=== PATIENT | male | born 1980 | race Caucasian/White ===

== ENCOUNTER 2018-09-27 00:08 | Emergency (ER) | payer MEDICARE ==
[~2018-09-27] VITALS: Ht 188 cm; Wt 82.0 kg
[2018-09-27 09:31] LABS: BASOPHILS % 0.4 % (0.0-2.0); HEMATOCRIT. 41.1 % (42.0-52.0); HEMOGLOBIN. 13.7 g/dL (14.0-18.0); LYMPHOCYTES % 20.8 % (20.0-50.0); MEAN CORPUSCULAR HEMOGLOBIN 30.7 pg (28.0-32.0); MEAN CORPUSCULAR VOLUME 92.2 fL (80.0-94.0); MEAN PLATELET VOLUME 8.3 fl (7.4-10.4); MONOCYTES % 11.7 % (2.0-8.0); NEUTROPHILS % 66.1 % (40.0-76.0); PLATELET 148 x1000/uL (130-400); RED BLOOD CELL COUNT 4.46 mill/uL (4.7-6.1)
[2018-09-27 09:38] LABS: CHLORIDE 104 mEq/L (98-107)
[2018-09-27 09:42] LABS: ETHANOL BLOOD < 10 mg/dL
[2018-09-27 10:02] LABS: CLARITY URINE CLEAR (CLEAR); COLOR URINE DARK YELLOW (YELLOW); KETONES URINE 2+ (NEGATIVE); LEUKOCYTE ESTERASE URINE NEGATIVE (NEGATIVE); NITRITE URINE NEGATIVE (NEGATIVE); OCCULT BLOOD URINE NEGATIVE (NEGATIVE); PH URINE 5.5 (4.5-8.0); PROTEIN URINE TRACE (NEGATIVE); SPECIFIC GRAVITY URINE 1.037 (1.005-1.030)
[2018-09-27 10:27] LABS: *AMPHETAMINES SCREEN URINE NEGATIVE (NEGATIVE); *BARBITURATES SCREEN URINE NEGATIVE (NEGATIVE); *BENZODIAZEPINES SCREEN URINE NEGATIVE (NEGATIVE); *COCAINE SCREEN URINE NEGATIVE (NEGATIVE); METHADONE URINE SCREEN NEGATIVE (NEGATIVE); OPIATES URINE SCREEN NEGATIVE (NEGATIVE)
[2018-09-27 10:28] LABS: CANNABINOID URINE SCREEN NEGATIVE (NEGATIVE); PHENCYCLIDINE URINE SCREEN NEGATIVE (NEGATIVE)
[2018-09-27] MEDS ORDERED: HALOPERIDOL LACTATE 5MG/ML VIAL IM ONE (23:00)
[2018-09-28 12:45] VITALS: BP 121/69
== END 2018-09-28 13:03 | disposition home or self-care (01) ==
LOC: ER 00:08
DX: M79.672 Pain in left foot (principal); M79.671 Pain in right foot; M79.642 Pain in left hand; M79.641 Pain in right hand; Z87.820 Personal history of traumatic brain injury; J45.909 Unspecified asthma, uncomplicated; Z87.891 Personal history of nicotine dependence; Z98.890 Other specified postprocedural states; Z59.0 Homelessness; Z88.0 Allergy status to penicillin; Z75.1 Person awaiting admission to adequate facility elsewhere
CPT/HCPCS: 36415; 70450; 80053; 80305; 80320; 81003; 85025; 96372; 99284; J1630; G0480

== ENCOUNTER 2018-09-28 16:17 | Emergency (ER) | payer MEDICARE, MEDICAID ==
[~2018-09-28] VITALS: Ht 182.9 cm; Wt 72.0 kg
[2018-09-28 18:19] LABS: BASOPHILS % 0.2 % (0.0-2.0); HEMATOCRIT. 42.2 % (42.0-52.0); HEMOGLOBIN. 14.1 g/dL (14.0-18.0); LYMPHOCYTES % 21.1 % (20.0-50.0); MEAN CORPUSCULAR VOLUME 92.7 fL (80.0-94.0); MEAN PLATELET VOLUME 8.3 fl (7.4-10.4); MONOCYTES % 11.2 % (2.0-8.0); NEUTROPHILS % 66.5 % (40.0-76.0); PLATELET 170 x1000/uL (130-400); RED BLOOD CELL COUNT 4.55 mill/uL (4.7-6.1); RED CELL DISTRIBUTION WIDTH 13.2 % (11.6-14.6)
[2018-09-28 18:30] LABS: CHLORIDE 110 mEq/L (98-107)
[2018-09-28 18:34] LABS: ETHANOL BLOOD < 10 mg/dL
[2018-09-28 21:14] LABS: *AMPHETAMINES SCREEN URINE NEGATIVE (NEGATIVE); *BARBITURATES SCREEN URINE NEGATIVE (NEGATIVE); *BENZODIAZEPINES SCREEN URINE NEGATIVE (NEGATIVE); *COCAINE SCREEN URINE NEGATIVE (NEGATIVE); METHADONE URINE SCREEN NEGATIVE (NEGATIVE)
[2018-09-28 21:15] LABS: CANNABINOID URINE SCREEN NEGATIVE (NEGATIVE); OPIATES URINE SCREEN NEGATIVE (NEGATIVE); PHENCYCLIDINE URINE SCREEN NEGATIVE (NEGATIVE)
[2018-09-28] MEDS ORDERED: HALOPERIDOL LACTATE 5MG/ML VIAL IM ONE (22:00)
[2018-09-29 06:48] VITALS: BP 111/65
[2018-09-29] MEDS ORDERED: LORAZEPAM 2MG/ML CPJ IM STA (09:00)
[2018-09-29] MEDS ORDERED: RISPERIDONE 1MG TABLET PO SCH (09:00)
== END 2018-09-29 12:30 | disposition home or self-care (01) ==
LOC: ER 16:40
DX: Z00.8 Encounter for other general examination (principal); Z59.0 Homelessness; R45.1 Restlessness and agitation; R03.0 Elevated blood-pressure reading, without diagnosis of hypertension; R47.81 Slurred speech; Z87.820 Personal history of traumatic brain injury
CPT/HCPCS: 36415; 70450; 80053; 80305; 80320; 85025; 96372; 99284; J1630; J2060; G0480